=== PATIENT | male | born 1995 | race Caucasian/White ===

== ENCOUNTER 2019-01-04 11:59 | Emergency (ER) | payer BC ==
[~2019-01-04] VITALS: Ht 182.8 cm; Wt 127.0 kg
[2019-01-04 11:59] VITALS: BP 156/84
[~2019-01-04 11:59] MED LIST: AMOXICILLIN500 MG PO; CLINDAMYCIN HC300 MG PO
[2019-01-04] MEDS ORDERED: Motrin,Rufen800 MG PO (13:07)
== END 2019-01-04 13:21 | disposition home or self-care (01) ==
LOC: ED 11:59
DX: S93.401A Sprain of unspecified ligament of right ankle, initial encounter (principal); X50.0XXA Overexertion from strenuous movement or load, initial encounter; X50.1XXA Overexertion from prolonged static or awkward postures, initial encounter; Y93.89 Activity, other specified; Y92.89 Other specified places as the place of occurrence of the external cause; Y99.8 Other external cause status